=== PATIENT | male | born 1955 | race Caucasian/White ===

== ENCOUNTER → 2024-02-28 | Outpatient (CLI) | payer MEDICARE, SELFPAY ==
--- NOTE | 2024-02-28 08:00 | XR_ITS ---
MRI shoulder, left, without contrast. Date and time: February 28, 2024 0832 hours INDICATIONS: Left shoulder pain 6 months with decreased range of motion Technique: Multiple axial, sagittal and coronal sections of the shoulder have been obtained. Siemens high-resolution 1.5 Yolie MRI scanner is utilized. Axial fat-suppressed sections, TR 2350, TE 18 T2-weighted coronal fat-saturated images, TR 3500, TE 7100 T1-weighted coronal images, TR 500, TE 15 T2-weighted sagittal fat-saturated images, TR 3500, TE 57 T1-weighted sagittal sections, TR 504, TE 13. Findings: Suspicious for 10 mm full-thickness rotator cuff tear Subscapularis insertion is intact. Subscapularis bursa is not seen. Long head of the biceps is in the bicipital groove. No definite tear of the biceps superior labral anchor is seen. Retraction of the musculotendinous junction of the rotator cuff is mild. Tendinosis pattern is moderate. Distance between the acromium and humeral head is 4.2 mm Atrophy of the supraspinatus muscle is mild . Atrophy of the infraspinatus muscle is mild. Sagittal sections demonstrate a horizontal acromion. Acromioclavicular joint demonstrates moderate osteoarthritis. Osacromiale is not identified. Anterior superior labral tears. Bony glenoid fossa on the sagittal sections does not demonstrate osseous defect. Occult fracture or area of avascular necrosis is not seen. Acromioclavicular joint separation is not visible. Defect in the posterolateral margin of the humeral head is not seen Impression: This patient should return for MR arthrography followed by post intra-articular contrast images of the shoulder to confirm 10 mm full-thickness rotator cuff tear Small tears anterior superior labral
== END | disposition home or self-care (01) ==
LOC: SMRI 07:31
PROVIDERS: PCP Internal Medicine; Referring Provider Internal Medicine; Visit Provider Internal Medicine
DX: M75.102 Unspecified rotator cuff tear or rupture of left shoulder, not specified as traumatic (principal); S43.432A Superior glenoid labrum lesion of left shoulder, initial encounter; X58.XXXA Exposure to other specified factors, initial encounter
CPT/HCPCS: 73221

== ENCOUNTER → 2024-04-28 | Outpatient (CLI) | payer MEDICARE, SELFPAY ==
--- NOTE | 2024-04-28 09:20 | XR_ITS ---
Examination: MRI right hip without intravenous contrast. Date and time of exam: April 28, 2024 1052 hours INDICATIONS: Right hip pain and stiffness beginning one year ago Technique: Multiple MRI images of the right hip have been obtained T1 weighted coronal sections, TR 500, TE 12 Proton density coronal fat saturated images, TR 3000, TE 71 T2-weighted coronal images, 5850, TE 104 T1-weighted axial images, TR 521, TE 12 T2-weighted axial fat suppressed images, TR 5730, TE 103. Findings: Moderate narrowing hip joints No right hip fracture bone marrow edema or avascular necrosis High-resolution small [id number] images do not demonstrate definite labral tear Left hip bones of the pelvis intact Transverse prostate dimension 5.5 cm IMPRESSION: Moderate narrowing bilateral hip joints
== END | disposition home or self-care (01) ==
PROVIDERS: PCP Internal Medicine; Referring Provider Internal Medicine; Visit Provider Internal Medicine
DX: M25.851 Other specified joint disorders, right hip (principal)
CPT/HCPCS: 73721

== ENCOUNTER 2024-05-09 09:04 | Outpatient (AMB) | payer MEDICARE, SELFPAY ==
--- NOTE | 2024-05-09 09:57 | ORTHONT_ITS ---
Vital signs 05/09/24 09:58 Height 1.85 m Height Method Stated Weight 97.692 kg Weight Measurement Method Standing Scale BMI 28.4 BP 135/77 H Blood Pressure Source Automatic Cuff Blood Pressure Location Left Upper Arm Position Sitting Respiration 18 Pulse 67 Pulse Source Monitor Temp 97.5 F Temp Source Temporal Artery Scan Pulse Oximetry (%) 95 Oxygen Delivery Method Room Air Med/Allergies Allergies & Medications Allergies NKA* Allergy (Uncoded 05/09/24 09:59) Medication Reconciliation ATORVASTATIN CALCIUM 20 mg PO QDAY ##90 08/06/16 [History Confirmed 05/09/24] Amlodipine Besylate/Benazepril (Amlodipine-Benazepril 5/10 Mg) 1 cap PO QDAY ##90 08/06/16 [History Confirmed 05/09/24] Fenofibrate Nanocrystallized (Fenofibrate) 145 mg PO QDAY ##90 08/06/16 [History Confirmed 05/09/24] Metformin Hcl 1,000 mg PO QDAY ##180 08/06/16 [History Confirmed 05/09/24] omeprazole 40 mg capsule,delayed release 40 mg PO QDAY ##90 08/06/16 [History Confirmed 05/09/24] celecoxib 200 mg capsule 200 mg PO BID #90 caps 05/09/24 [Rx] empagliflozin 25 mg tablet (Jardiance) 25 mg PO QAM 05/09/24 [History Confirmed 05/09/24] glyburide 5 mg tablet 5 mg PO QDAY 05/09/24 [History Confirmed 05/09/24] meloxicam 15 mg tablet 15 mg PO QDAY 05/09/24 [History Confirmed 05/09/24] Exam Exam Patient is in no acute distress and is cooperative with the examination today. Breathing is nonlabored. In no respiratory distress. Patient has no paraspinal tenderness. Spinal deformity cannot be appreciated. The gait of the patient is nonantalgic Bilateral extremities were evaluated and demonstrates sensation intact to light touch. Palpable pedal pulses are present. No significant edema is present. Bilateral knees were examined and the patient has full strength and range of motion.. The left hip was examined. Patient was able to flex to 90 degrees, adduct to 30 degrees, abduct to 40 degrees, internally rotate to 20 degrees, and externally rotate to 20 degrees. Patient has a negative logroll. Stinchfield is negative. The patient is nontender diffusely to touch. The right hip was examined. Patient was able to flex to 90 degrees, adduct to 30 degrees, abduct to 40 degrees, internally rotate to 20 degrees, and externally rotate to 20 degrees. Patient has a negative logroll. The stinchfield is negative. Right hip x-rays demonstrate mild joint space narrowing and arthritis. There are no significant osteophytes. The MRI also shows very little pathology Assessment and Plan Problem List (1) Bilateral hip joint arthritis: Status: Acute Plan: Patient is a 68-year-old male with bilateral hip pain and bilateral hip arthritis. We discussed nonoperative and operative options. We discussed that I would start with anti-inflammatories as the arthritis is quite mild. He would like to try cortisone injection of his right hip as well Advanced Care Planning Discussion Advance care planning discussed with:: patient Office Procedures GNS Level of Care Nursing/Assessment Patient Status: Initial/New Patient Nursing Assessment/Reassesment: Medication Reconciliation, Update PMH in EMR and Vital Signs Coordination of Care: Complex Care and Chronic Disease 1-5, Education Complex Pt/Fam, Consent,records obtained, informed consent, 1 Ins Authorization, Lab and Imaging orders, Results/Orders obtained and Staff clarify orders New Patient Charge New Patient Point Assignment: 1124 New Patient Point Charge: DIRECTOR MOTION PICTURE Level 4 (3579-2716) MA Intake Visit Data Collection New Patient or Established: New Patient (never been to [facility]) Reason for Visit:: RIGHT HIP PAIN Seen by Clinical Staff ONLY (RN/MA): No Investment Underwriter Required: No PCP or OBGYN visit in last 3 months: Yes Hx Now: No Do You Feel Safe at Home: Yes Authorities Contacted: N/A Questionairres Past Medical History Past Medical History Have you ever been diagnosed with any of the following: Subjective Visit Visit for: new patient and hip Immunization / Flu Flu Vaccine in the Last 12 Months: Yes Flu Vaccine Exclusion Criteria: Already Received History of Present Illness Chief complaint: Right hip pain Sunil is a 68-year-old male with right hip pain and right hip arthritis Of moderate severity. He reports that he has some issues crossing his leg. He is able to walk is much as he wants. He is on meloxicam and has left shoulder issues. Personal History Occupation: RETIRED Pain Pain level (0-10): 7 Pain duration: WITH MOVEMENT Pain location: groin Pain quality: sharp, dull and aching Pain timing: night and increases with activity Associated signs & symptoms: stiffness Ambulatory data Ambulatory device: none Treatments Improvement with previous injections: No Improvement with PT: No Improvement with NSAIDS: no Review of Systems Review of Systems: All systems negative unless otherwise noted in HPI.
[2024-05-09 09:58] VITALS: BP 135/77; PULSE 67; RESP 18; TEMP 36.4; O2SAT 95; BMI 28.4
== END 2024-05-09 10:10 | disposition home or self-care (01) ==
LOC: HODSRG 09:04
PROVIDERS: Supervising Provider Orthopaedic Surgery Adult Reconstructive Orthopaedic Surgery; Visit Provider Orthopaedic Surgery Adult Reconstructive Orthopaedic Surgery
DX: M16.0 Bilateral primary osteoarthritis of hip (principal); M25.552 Pain in left hip; M25.551 Pain in right hip
CPT/HCPCS: 99204; G0463

== ENCOUNTER 2024-05-20 08:43 | Emergency (ER) | payer MEDICARE, SELFPAY ==
[2024-05-20 09:05] VITALS: BP 127/79; PULSE 90; RESP 19; TEMP 37.1; O2SAT 95; BMI 27.8
[2024-05-20] MEDS: FAMOTIDINE 20 MG TABLET 40 MG PO (09:43)
[2024-05-20] MEDS: DiphenhydrAMINE ELIX 25 MG/10 ML UDC 50 MG PO (09:43)
[2024-05-20] MEDS: predniSONE 20 MG TABLET 60 MG PO (09:43)
--- NOTE | 2024-05-20 12:40 | PD.EDSKIN ---
ED Skin Abcess FB-RME/HPI General Chief complaint: Skin/Abscess/Foreign Body Stated complaint: LIP NUMBNESS/BODY RASH Time Seen by Provider: 05/20/24 08:53 Arrival date/time: 05/20/24 08:43 Related Data Home Medications ?Medication ?Instructions ?Recorded ?Confirmed ATORVASTATIN CALCIUM 20 mg PO QDAY ##90 08/06/16 05/09/24 Amlodipine Besylate/Benazepril 1 cap PO QDAY ##90 08/06/16 05/09/24 (Amlodipine-Benazepril 5/10 Mg) Fenofibrate Nanocrystallized 145 mg PO QDAY ##90 08/06/16 05/09/24 (Fenofibrate) Metformin Hcl 1,000 mg PO QDAY ##180 08/06/16 05/09/24 omeprazole 40 mg capsule,delayed 40 mg PO QDAY ##90 08/06/16 05/09/24 release empagliflozin 25 mg tablet 25 mg PO QAM 05/09/24 05/09/24 (Jardiance) glyburide 5 mg tablet 5 mg PO QDAY 05/09/24 05/09/24 meloxicam 15 mg tablet 15 mg PO QDAY 05/09/24 05/09/24 Previous Rx's ?Medication ?Instructions ?Recorded celecoxib 200 mg capsule 200 mg PO BID #90 caps 05/09/24 diphenhydramine HCl 25 mg capsule 25 mg PO TID PRN allergy symptoms 05/20/24 (Benadryl) #30 caps famotidine 20 mg tablet (Pepcid AC) 40 mg (2 x 20 mg) PO QDAY #20 tabs 05/20/24 prednisone 20 mg tablet 40 mg (2 x 20 mg) PO QDAY 5 days 05/20/24 #10 tabs Allergies Allergy/AdvReac Type Severity Reaction Status Date / Time NKA* Allergy Uncoded 05/20/24 08:45 Review of Systems Review of Systems Systems Reviewed: All systems reviewed, normal except as documented Narrative Review of Systems: Gen: No fever, no chills, no weight loss EYES: No discharge, no visual changes, no pain HEENT: No ear pain, no congestion, no sore throat PULM: No shortness of breath, no cough, no congestion CV: No chest pain, no dyspnea on exertion, no palpitations GI: No nausea, no vomiting, no diarrhea, no pain, no constipation : No frequency, no urgency,? no dysuria Musc/skel: No joint pain, no back pain Skin: No rash? Psyc: No hallucinations, no depression Heme/Lymph: No easy bleeding or bruising tendencies Neuro: No weakness, no headache ED Exam Narrative Physical exam: General: Sittiing in Exam table in no acute distress, answering questions appropriately HENT: normocephalic, atraumatic, EOMI, PERRLA, moist mucous membranes Chest: chest wall is nontender Cardiac: regular rate and rhythm, normal S1 and S2, no murmurs, rubs, or gallops, capillary refill ?2 seconds Pulmonary: clear to auscultation bilaterally, no wheezing, crackles, or rhonchi Abdominal: active bowel sounds, soft, nontender, nondistended Neuro: A&OX3, CN II-XII intact, sensation grossly intact bilaterally in UE and LE. Skin: no rashes, no ecchymosis Ext: no lower extremity edema Course Quality Measures none Orders Category Date Time Status DiphenhydrAMINE [Benadryl] Med 05/20/24 09:32 Discontinued 50 mg PO X1 ONE Famotidine [Pepcid] Med 05/20/24 09:33 Discontinued 40 mg PO X1 ONE predniSONE Med 05/20/24 09:32 Discontinued 60 mg PO X1 ONE Vital Signs Vital signs: Vital Signs Temperature 98.8 F 05/20/24 09:05 Pulse Rate 90 05/20/24 09:05 Respiratory Rate 19 05/20/24 09:05 Blood Pressure 127/79 05/20/24 09:05 Pulse Oximetry (%) 95 05/20/24 09:05 Oxygen Delivery Method Room Air 05/20/24 09:05 Skin / Abscess / Foreign Body Patient data External records reviewed:: [facility] previous records Clinical information provided by:: patient Social determinants that could affect healthcare access:: none Patient has the following chronic illnesses:: none How is presenting disease/condition affected by chronic disease/condition?: no chronic disease Evaluation data The following diagnostics were reviewed and interpreted by me:: other (specify) Lab and/or radiology exams considered but not ordered:: none Interpretation Summary: none Medications / Prescriptions Medications or Prescriptions considered but not ordered:: none Medication administrations:: Medication Administration History Discontinued Medications Diphenhydramine HCl (Diphenhydramine Elix 25 Mg/10 Ml Udc) 50 mg PO X1 ONE Stop: 05/20/24 09:33 Last Admin: 05/20/24 09:43 Dose: 50 mg Documented By: BD Famotidine (Famotidine 20 Mg Tablet) 40 mg PO X1 ONE Stop: 05/20/24 09:34 Last Admin: 05/20/24 09:43 Dose: 40 mg Documented By: BD Prednisone (Prednisone 20 Mg Tablet) 60 mg PO X1 ONE Stop: 05/20/24 09:33 Last Admin: 05/20/24 09:43 Dose: 60 mg Documented By: BD All medications administered and effective Consultations Consultation(s) initiated? (list below): No Diagnosis Skin/Abscess Differential Diagnosis: other (Angioedema of the lips ) Most likely diagnosis given after review of the tests above:: Allergic Reaction Admission Indicated Admission indicated?: not indicated Admission Request Was there a request for admission?: No Disposition Plan Disposition Plan: Discharge Discharge Attestation Discharge Attestation: The patient and all family members were given an opportunity to ask questions and understood the discharge instructions. Discharge instructions specifically effects, indications for sooner follow up or return to the emergency department, and the expected course of current diagnosis. Patient condition: Stable Discharge Plan Plan Patient Disposition: HOME (Self Care) Prescriptions/Referrals Prescriptions/Med Rec: New diphenhydramine HCl [Benadryl] 25 mg capsule 25 mg PO TID PRN (Reason: allergy symptoms) Qty: 30 0RF famotidine [Pepcid AC] 20 mg tablet 40 mg PO QDAY Qty: 20 0RF prednisone 20 mg tablet 40 mg PO QDAY 5 Days Qty: 10 0RF No Action meloxicam 15 mg tablet 15 mg PO QDAY Jardiance 25 mg tablet 25 mg PO QAM glyburide 5 mg tablet 5 mg PO QDAY celecoxib 200 mg capsule 200 mg PO BID Qty: 90 1RF ATORVASTATIN CALCIUM 20 MG tablet 20 mg PO QDAY Qty: 90 Amlodipine Besylate/Benazepril (Amlodipine-Benazepril 5/10 Mg) 1 CAP capsule 1 cap PO QDAY Qty: 90 omeprazole 40 MG capsule,delayed release(DR/EC) 40 mg PO QDAY Qty: 90 Fenofibrate Nanocrystallized (Fenofibrate) 145 MG tablet 145 mg PO QDAY Qty: 90 Metformin Hcl 1,000 MG tablet 1,000 mg PO QDAY Qty: 180 Referrals: Anita Ott MD [Primary Care Provider] - In 1 week Problem List Clinical Impression: Allergic reaction, Angioedema of lips Patient/Caregiver Discharge Instructions Discharge Activity: activity as tolerated Education Materials: ED Medicine Reaction: Allergic, ED Angioedema Additional Instructions: It is very important that you see or follow-up either here or with your primary doctor in 24 hours. Is any worsening swelling any changes in the rash, difficulty breathing need to call 911. Please stop taking Celebrex Continue all medications as directed. Print Language: Urdu Stand Alone Forms: Genevieve Award Info., Patient Portal Info Letter PA/ROTARY FILTER OPERATOR Supervising Physician PA/JUDE Supervising Physician: Dr Gonzalez
== END 2024-05-20 13:01 | disposition home or self-care (01) ==
PROVIDERS: Emergency Provider Emergency Medicine; PCP Internal Medicine
DX: T78.3XXA Angioneurotic edema, initial encounter (principal)
CPT/HCPCS: 99282; J7512; A9270

== ENCOUNTER → 2024-05-23 | Outpatient (CLI) | payer MEDICARE, SELFPAY ==
--- NOTE | 2024-05-23 13:00 | XR_ITS ---
Examination: Steroid injection right hip with imaging guidance DATE: 05/23/2024, 12:42 PM Fluoroscopy time: 0.7 minutes Dose: 7.13 mGy Informed consent provided. Technique: A timeout was completed verifying correct patient, procedure, site, positioning. The patient was placed in supine position appropriate for the steroid injection The patient's site was prepped and draped in sterile fashion 5 cc 1% lidocaine administered locally for anesthesia. Sterile drape applied, maximum barrier sterile technique. Utilizing fluoroscopic guidance, 20-gauge needle placed in the hip joint The patient was in satisfactory and stable condition on completion of the procedure Attending radiologist was present for the entire procedure 2 mm contrast injected demonstrates proper positioning the needle. 5 mm Sensorcaine and 1 mL Kenalog injected under direct fluoroscopic guidance no immediate complications. IMPRESSION: Successful left hip joint steroid injection as above.
== END | disposition home or self-care (01) ==
LOC: SIRX 12:38
PROVIDERS: PCP Internal Medicine; Referring Provider Orthopaedic Surgery Adult Reconstructive Orthopaedic Surgery; Visit Provider Orthopaedic Surgery Adult Reconstructive Orthopaedic Surgery
DX: M16.11 Unilateral primary osteoarthritis, right hip (principal)
CPT/HCPCS: 20610; 77002

== ENCOUNTER → 2024-08-09 | Outpatient (CLI) | payer MEDICARE, SELFPAY ==
[2024-08-09 08:23] LABS: Prostate Specific Antigen 0.55 ng/mL (0-4.00)
[2024-08-09 08:28] LABS: Cardiac Risk Estimate 4.2 RATIO (4.0-6.7); Cholesterol 159 mg/dL (132-200); HDL Cholesterol 38 mg/dL (40-60); LDL Cholesterol,Calculated 77 mg/dL (0-130); Triglycerides 222 mg/dL (30-150)
== END | disposition home or self-care (01) ==
LOC: COPL 06:40
PROVIDERS: PCP Internal Medicine; Referring Provider Nurse Practitioner Family; Visit Provider Nurse Practitioner Family
DX: E11.9 Type 2 diabetes mellitus without complications (principal); N39.0 Urinary tract infection, site not specified
CPT/HCPCS: 36415; 80061; 84153

== ENCOUNTER → 2024-08-28 | Outpatient (CLI) | payer MEDICARE, SELFPAY ==
[2024-08-28 12:14] LABS: Uric Acid 5.1 mg/dL (3.7-9.2)
== END | disposition home or self-care (01) ==
LOC: COPL 11:07
PROVIDERS: PCP Internal Medicine; Referring Provider Podiatrist; Visit Provider Podiatrist
DX: M10.079 Idiopathic gout, unspecified ankle and foot (principal)
CPT/HCPCS: 36415; 84550

== ENCOUNTER → 2025-01-09 | Outpatient (CLI) | payer MEDICARE, SELFPAY ==
[2025-01-09 08:36] LABS: Basophils # (Auto) 0.0 Thou/mm3 (0.0-0.2); Basophils % (Auto) 1 % (0-2.5); Eosinophils # (Auto) 0.2 Thou/mm3 (0.0-0.5); Eosinophils % (Auto) 3 % (0-10); Hematocrit 42.4 % (41.0-53.0); Hemoglobin 14.6 g/dL (13.5-16.0); Immature Granulocytes Auto 0.02 Thou/mm3 (0.00-0.00); Lymphocytes # (Auto) 1.6 Thou/mm3 (1.0-4.8); Lymphocytes % (Auto) 25 % (10-50); Mean Corpuscular HGB Conc 34.4 g/dl (31.0-37.0); Mean Corpuscular Hemoglobin 30.7 pg (25.0-35.0); Mean Corpuscular Volume 89 fL (80-100); Monocytes # (Auto) 0.5 Thou/mm3 (0.0-0.8); Monocytes % (Auto) 8 % (0-12); Neutrophils # (Auto) 4.0 Thou/mm3 (1.8-7.7); Neutrophils % (Auto) 63 % (37-80); Nucleated Red Blood Cell # 0.00 Thou/mm3 (0.00-0.00); Nucleated Red Blood Cell % 0 /100 WBC (0); Platelet Count 217 Thou/mm3 (140-440); RDW Standard Deviation 40.9 fL (35.1-43.9); Red Blood Count 4.75 Miln/mm3 (4.50-5.90); White Blood Count 6.4 Thou/mm3 (3.8-10.6)
[2025-01-09 08:41] LABS: Glucose Estimated Average 148 mg/dL (80-131); Hemoglobin A1C 6.8 % Hgb (4.8-6.0)
[2025-01-09 09:14] LABS: Alanine Aminotransferase 20 U/L (10-49); Albumin, Serum 4.9 gm/dL (3.4-4.8); Albumin/Globulin Ratio 2.3 (1.2-2.2); Alkaline Phosphatase 41 U/L (46-116); Anion Gap 10 (7-16); Aspartate Amino Transferase 18 U/L (0-34); BUN/Creatinine Ratio 12 Ratio (12-20); Bilirubin,Total 0.5 mg/dL (0.3-1.2); Blood Urea Nitrogen 13 mg/dL (9-23); Calcium 9.7 mg/dL (8.3-10.6); Calcium (Corrected) 9.7 mg/dL (8.5-10.1); Carbon Dioxide 22.3 mMol/L (20.0-31.0); Cardiac Risk Estimate 4.0 RATIO (4.0-6.7); Chloride 109 mMol/L (98-107); Cholesterol 151 mg/dL (132-200); Creatinine (Component) 1.1 mg/dL (0.6-1.3); Globulin 2.1 gm/dL (2.3-3.5); Glucose 148 mg/dL (74-106); HDL Cholesterol 38 mg/dL (40-60); LDL Cholesterol,Calculated 66 mg/dL (0-130); Osmolality,Calculated 284 (275-295); Potassium 4.4 mMol/L (3.4-5.1); Sodium 141 mMol/L (136-145); Thyroid Stimulating Hormone 1.42 uIU/mL (0.55-4.78); Total Protein 7.0 gm/dL (5.7-8.2); Triglycerides 234 mg/dL (30-150); eGFR > 60 See Note
[2025-01-09 11:28] LABS: Prostate Specific Antigen 0.57 ng/mL (0-4.00)
== END | disposition home or self-care (01) ==
LOC: COPL 07:07
PROVIDERS: PCP Internal Medicine; Referring Provider Internal Medicine; Visit Provider Internal Medicine
DX: E11.9 Type 2 diabetes mellitus without complications (principal); E78.2 Mixed hyperlipidemia; I10 Essential (primary) hypertension; Z12.5 Encounter for screening for malignant neoplasm of prostate
CPT/HCPCS: 36415; 80053; 80061; 83036; 84153; 84443; 85025